=== PATIENT | female | born 1995 | race Caucasian/White ===

== ENCOUNTER → 2017-03-23 | Outpatient (CLI) | payer OTHER | LOC: FIMAGING 09:01 | PROVIDERS: ATTEND Advanced Practice Midwife | DX: Z34.02 Encounter for supervision of normal first pregnancy, second trimester (principal); Z3A.26 26 weeks gestation of pregnancy ==

== ENCOUNTER 2017-06-16 20:25 | Observation (INO) | payer OTHER | END 2017-06-16 22:40 | disposition home or self-care (01) | LOC: FLD 20:25 | PROVIDERS: ADMIT Obstetrics & Gynecology; ATTEND Obstetrics & Gynecology | DX: O99.89 Other specified diseases and conditions complicating pregnancy, childbirth and the puerperium (principal); Z3A.38 38 weeks gestation of pregnancy | CPT/HCPCS: 59025; G0378 ==

== ENCOUNTER 2017-06-29 16:24 | Observation (INO) | payer OTHER | END 2017-06-29 19:21 | disposition home or self-care (01) | LOC: FLD 16:24 | PROVIDERS: ADMIT Obstetrics & Gynecology; ATTEND Obstetrics & Gynecology | DX: Z34.92 Encounter for supervision of normal pregnancy, unspecified, second trimester (principal) | CPT/HCPCS: 59025; G0378 ==

== ENCOUNTER 2017-07-03 12:25 | Inpatient (IN) | payer OTHER ==
[2017-07-03] MEDS ORDERED: OLIVE OIL 118 ML BTL MISC PRN (13:04)
[2017-07-03] MEDS ORDERED: LR 1,000 ML IV PRN (13:04)
[2017-07-03] MEDS ORDERED: TERBUTALINE SULFATE 1 MG/ML VIAL IV PRN (13:04)
[2017-07-03] MEDS ORDERED: OXYTOCIN/RINGERS LACTATE 1,000 ML IV PRN (13:04)
[2017-07-03] MEDS ORDERED: EPSOM SALT 454 GM TP PRN (13:04)
[2017-07-03 14:11] LABS: ABSOLUTE IMMATURE GRANULOCYTES 0.12 10^3/uL (0.00-0.10); ADD DIFF? NO; ADD MORPH? NO; ADD SCAN? NO; ATYPICAL LYMPHOCYTE FLAG 10 (0-99); FRAGMENT RBC FLAG 0 (0-99); HEMATOCRIT 38.9 % (38.0-47.0); HEMOGLOBIN 13.6 g/dL (12.6-16.3); LEFT SHIFT FLG 10 (0-99); LIPEMIA HEMOLYSIS FLAG 90 (0-99); MEAN CELL HEMOGLOBIN 29.1 pg (27.9-34.1); MEAN CELL VOLUME 83.3 fL (81.5-99.8); MEAN PLATELET VOLUME 10.3 fL (8.7-11.7); PLATELET CLUMPS FLAG 0 (0-99); PLATELET COUNT 223 10^3/uL (150-400); RED BLOOD CELL COUNT 4.67 10^6/uL (4.18-5.33); RED CELL DISTRIBUTION WIDTH 13.2 % (11.5-15.2)
--- NOTE | 2017-07-03 14:16 | GHP ---
[f rep st] PREOP HISTORY AND PHYSICAL DATE OF ADMISSION: 07/03/2017 ADMITTING DIAGNOSIS: Intrauterine at 41 weeks' gestation, in early labor. HISTORY OF PRESENT ILLNESS: The patient is a 22-year-old, 1, para 0, with a last menstrual period of 09/18/2016 and an EDC of 06/26/2017, which was confirmed by a 9-week ultrasound. She has had good care at [facility] since registration at 9 weeks' gestation. Her prenat al risk factors include she has had increased BMI, she is vegan, history of pyelonephritis, Rh negat michelle, and that is all. She has had an uncomplicated course. Had normal labs in this pregna ncy, a number of ultrasounds in this , and she progressed to 41 weeks. In the office on , her cervix was checked. She was found to be 2, 80, and -1, and she had her membranes swept. She reports increased contractions since that happened, increasing over the evening. Now they are every 5 minutes and increased in intensity. She has not slept all night. She denies leakage of fl uid. Has had minimal vaginal bleeding and has had good movement. On assessment, heart tones were in the 130s and reactive, moderate variability. Contractions are irregular. Cervix remains 2, 80 and -1. We discussed management, and because the patient is al ready 41 weeks and has been having prodromal labor all night, the patient wishes to be admitted for active labor management, and I am in agreement. Initially, on her 20-week ultrasound, was size less than dates, and estimated weight is 12th percentile. She had a followup growth ultrasound at 32 weeks that showed 15th percentile for growth, and then most recent ultrasound at 36 weeks, baby' s estimated weight was 42nd percentile. CATHIE was normal. She had a posterior placenta, which was reassuring. She did have a post-dates evaluation yesterday, and her CATHIE was 18.5. Baby was cep halic. Her NST was reactive, category 1. The patient has no past obstetrical history; this is her first . PAST GYNECOLOGICAL HISTORY: She had menarche at age 14. She has irregular cycles every 1-4 months, length of 5 days. She has history of dysmenorrhea, but did have a sure last menstrual period of . She has a history of endometriosis and had an endometrioma seen on ultrasound years ago. She has a history of pyelonephritis. She was treated in 2012. PAST SURGICAL HISTORY: Only surgical history is wisdom teeth extraction. She did have an injury of her left elbow, fractured at age 13. ALLERGIES: She is allergic to latex. It gives her a rash. No known drug allergies. MEDICATIONS: Include vitamins and DHA. LABS: She is O negative. Antibody negative. RPR nonreactive. Rubella immune. Hepatitis negative . HIV negative. Cystic fibrosis, SMA, fragile X declined. Patient declined Verifi and A FP. Pap was normal. Gonorrhea and chlamydia normal. One-hour GTT 76. GBS is negative. SOCIAL HISTORY: She is single, but in a committed relationship, living with her partner S he works as a nanny. She denies tobacco, alcohol, and drug use. FAMILY HISTORY: Maternal grandmother had an NC. Maternal grandfather had chronic hypertension. Fa ther has Crohn disease. Maternal grandmother had a stroke. That is all. REVIEW OF SYSTEMS: Negative, except for pertinent positives as above. OBJECTIVE: VITAL SIGNS: She is afebrile. Vital signs are stable. heart tones are 130s, regla ctive, moderate variability, category 1. She is brennan irregularly. PELVIC: Cervix is 2, 80, -1. ASSESSMENT/PLAN: A 22-year-old, 1, para 0, at 41 weeks' gestation, in early prodromal labor . Patient wishes to be admitted for active labor management. Patient will have a lab started and w ill ambulate to try to get the contractions to be closer together. I will check her cervix in a cou ple hours and offer AROM if she has not progressed versus Pitocin augmentation. /[id number]/MODL
[2017-07-03] MEDS ORDERED: LIDOCAINE 1% 300 MG/30 ML SDV ONE (15:41)
[2017-07-03] MEDS ORDERED: TERBUTALINE SULFATE 1 MG/ML VIAL ONE (15:41)
[2017-07-03] MEDS ORDERED: OXYTOCIN 10 UNIT/ML VIAL ONE (15:41)
[2017-07-03] MEDS ORDERED: OLIVE OIL 118 ML BTL ONE (15:41)
[2017-07-03] MEDS ORDERED: AMMONIA AROMATIC 1 EACH AMP IH ONE (15:41)
[2017-07-03] MEDS ORDERED: MISOPROSTOL 200 MCG TAB ONE (15:42)
[2017-07-03] MEDS ORDERED: ONDANSETRON 4 MG/2 ML VIAL IVP ONE (16:00)
--- NOTE | 2017-07-03 17:15 | OBPROG ---
OBG Labor Progress Note Assessment/Plan: Assessment: 22 y/o @ 41 weeks in prodromal labor. Plan: I feel that we should now offer augmentation of labor and I gave her the choice of AROM vs pitocin. She would prefer AROM first and will desire IV Fentanyl prior. status is reassuring. 07/03/17 17:13 Subjective: Pt continues to have strong contractions, she reports them to be building in strength and frequency. Objective: 07/03/17 13:50 Patient ABO/Rh O NEGATIVE 07/03/17 13:50 - SVE Dilation (cm): 2 Effacement (%): 80 Station: -1 Lopez Current Contraction Pattern: Irregular FHR (bpm): 130 FHR Pattern Variability: Moderate FHR Category: 1 Oxytocin Orders Assessment - Pre-Induction/Augmentation Assessment Gestational Age: 41 week(s) and 0 day(s) ICD10 Worksheet Patient Problems: Problems Problem Status Onset Leakage of amniotic fluid Acute
[2017-07-03] MEDS: fentaNYL 100 MCG/2 ML INJ IVP PRN ×2 (17:20→18:34)
[2017-07-03] MEDS ORDERED: BUPIVACAINE 0.25% 30 ML SDV ONE (18:20)
[2017-07-03] MEDS ORDERED: fentaNYL 2MCG/ML/BUP 0.1% RTU 100 ML BAG EP ONE (18:20)
[2017-07-03] MEDS ORDERED: PHENYLEPHRINE HCL 100 MCG/ML SYR ONE (18:20)
--- NOTE | 2017-07-03 19:24 | PREANESOB ---
Obstetric Pre-Anesthesia Info - General Info Proposed Procedure: Labor and delivery. : 1 Para: 0 WBD: 41 - Info Status: Postmature Monitors: External FHR Baseline (bpm): 130 FHR Pattern: Reassuring - Labor Status Cervical Dilation per last OB SVE: 2 Station per last OB SVE: -1 Indications for Labor Analgesia: Pain Control Labor Epidural: Proposed Anesthesia ROS: S/P wisdom teeth removal. Past history of bipolar disorder. Allergies/Adverse Reactions: Allergy/AdvReac Type Severity Reaction Status Date / Time lamotrigine [From Lamictal] Allergy RASH, FEVER Verified 10/29/16 14:50 Latex, Natural Rubber Allergy Rash Verified 06/16/17 20:40 Home Medications: Medication Instructions Recorded Iron 1 tab PO DAILY 06/16/17 1 tab PO DAILY 06/16/17 Visit Medications: Generic Name Dose Route Start Last Admin Trade Name Freq PRN Reason Stop Dose Admin Fentanyl 50 mcg 07/03/17 17:10 07/03/17 18:34 Sublimaze IVP 07/13/17 17:09 50 mcg Q1HR PRN Administration Pain, Severe Unable to Take PO Lactated Ringer's 1,000 mls @ 0 mls/hr 07/03/17 13:04 Lr IV 12/30/17 13:03 PRN PRN SEE PROTOCOL CONDITIONS Protocol Per Protocol Oxytocin/Lactated Ringer's 1,000 mls @ 150 mls/hr 07/03/17 13:04 Pitocin 20 Units/Lr (Premix) IV PRN PRN Post- bleeding Ibuprofen 600 mg 07/03/17 13:04 Motrin PO 12/30/17 13:03 Q6HRS PRN post , inflammation Magnesium Sulfate 454 gm 07/03/17 13:04 Epsom Salt TP 12/30/17 13:03 Q1H PRN perineal discomfort Bracey Oil 118 ml 07/03/17 13:04 Sweet Oil MISC 12/30/17 13:03 ONCE PRN preneal massage Terbutaline Sulfate 0.25 mg 07/03/17 13:04 Brethine IV 12/30/17 13:03 ONCE PRN Tachysystole Discontinued Medications Generic Name Dose Route Start Last Admin Trade Name Freq PRN Reason Stop Dose Admin Ammonia (Aromatic Spirit) Confirm 07/03/17 15:41 Ammonia Aromatic Administered 07/03/17 15:42 Dose 1 each IH .STK-MED ONE Bupivacaine HCl Confirm 07/03/17 18:20 Sensorcaine 0.25% Sdv Administered 07/03/17 18:21 Dose 30 ml .ROUTE .STK-MED ONE Ephedrine Sulfate Confirm 07/03/17 15:41 Ephedrine Sulfate Administered 07/03/17 15:42 Dose 50 mg .ROUTE .STK-MED ONE Fentanyl/Bupivacaine HCl Confirm 07/03/17 18:20 Fentanyl/Bupivacaine/Ns 2 Mcg/Ml 0.1% (Premix Administered 07/03/17 18:21 Dose 100 ml EP .STK-MED ONE Lidocaine HCl Confirm 07/03/17 15:41 Lidocaine Hcl 1% Administered 07/03/17 15:42 Dose 300 mg .ROUTE .STK-MED ONE Misoprostol Confirm 07/03/17 15:42 Cytotec Administered 07/03/17 15:43 Dose 800 mcg .ROUTE .STK-MED ONE Bracey Oil Confirm 07/03/17 15:41 Sweet Oil Administered 07/03/17 15:42 Dose 118 ml .ROUTE .STK-MED ONE Ondansetron HCl 4 mg 07/03/17 16:00 07/03/17 18:02 Zofran IVP 07/03/17 16:01 4 mg ONCE ONE Administration Oxytocin Confirm 07/03/17 15:41 Pitocin Administered 07/03/17 15:42 Dose 40 unit .ROUTE .STK-MED ONE Phenylephrine HCl Confirm 07/03/17 18:20 Neosynephrine Administered 07/03/17 18:21 Dose 1,000 mcg .ROUTE .STK-MED ONE Terbutaline Sulfate Confirm 07/03/17 15:41 Brethine Administered 07/03/17 15:42 Dose 1 mg .ROUTE .STK-MED ONE - Anesthesia History Response to Local Anesthetics: Normal Anesthesia & Operative History: No Prior Problems Family Anesthesia History: Negative - Social History Substance Use/Abuse: Denies - Focused Exam Blood Pressure: 127/75 Heart Rate: 71 Height/Weight (Nursing): Height 160.02 cm Weight 101.151 kg Physical Exam: Within normal limits. Over weight. ASA Status: II Labs: 07/03/17 13:50 Patient ABO/Rh O NEGATIVE 07/03/17 13:50 - Plan Anesthetic Plan: CSE Consent Signed and on Chart: Yes Patient/Guardian Understands and Agrees to Plan: Yes Urgent/Emergent Case: Anes eval completed preop but documented later for safe timely pt care
[2017-07-03] MEDS ORDERED: PHENYLEPHRINE HCL 100 MCG/ML SYR IVP PRN (19:26)
[2017-07-03] MEDS ORDERED: ONDANSETRON 4 MG/2 ML VIAL IVP PRN (19:26)
--- NOTE | 2017-07-03 19:26 | POSTANESTH ---
Post Anesthetic Evaluation Cardiovascular Status: Normal, Stable Respiratory Status: Normal, Stable, Similar to Pre-op Cond. Level of Consciousness/Mental Status: Can Participate in Eval, Alert and Oriented Pain Control: Adequate, Prn Tx Ordered Nausea/Vomiting Control: Adequate, Prn Tx Ordered Complications Possibly Related to Anesthesia: None Noted
[2017-07-03] MEDS ORDERED: fentaNYL 2MCG/ML/BUP 0.1% RTU 100 ML EP SCH (19:30)
[2017-07-03] MEDS ORDERED: LR 500 ML IV SCH (19:30)
[2017-07-03] MEDS ORDERED: LR 500 ML IV PRN (20:35)
--- NOTE | 2017-07-03 20:35 | OBPROG ---
OBG Labor Progress Note Assessment/Plan: Assessment: 22 y/o @ 41 weeks in prodromal labor. Plan: She has some cervical progression with AROM and now is comfortable with her epidural. We placed an IUPC and FSE and will document her contraction adequacy. We will begin pitocin augmentation prn. 07/03/17 17:13 07/03/17 20:32 Subjective: Pt is now comfortable with her epidural. Objective: 07/03/17 13:50 Patient ABO/Rh O NEGATIVE 07/03/17 13:50 Temp Pulse Resp BP Pulse Ox 71 127/75 H 07/03/17 19:25 07/03/17 19:25 - SVE Dilation (cm): 4 Effacement (%): 90 Station: 0 Lopez Current Contraction Pattern: Regular (Q 2-4) FHR (bpm): 130 FHR Pattern Variability: Moderate FHR Category: 1 Membranes: AROM Amniotic Fluid Color: Clear - Procedures Non-surgical Procedures: Amniotomy Oxytocin Orders Assessment - Pre-Induction/Augmentation Assessment Gestational Age: 41 week(s) and 0 day(s) ICD10 Worksheet Patient Problems: Problems Problem Status Onset Leakage of amniotic fluid Acute
[2017-07-03] MEDS ORDERED: OXYTOCIN/RINGERS LACTATE 500 ML IV SCH (21:00)
--- NOTE | 2017-07-03 22:33 | OBPROG ---
OBG Labor Progress Note Assessment/Plan: Assessment: 22 y/o @ 41 weeks in prodromal labor. Plan: Slow cervical progression but making change and contraction pattern has improved with pitocin. Will re check in 2 hours or prn sooner. status is reassuring. 07/03/17 17:13 07/03/17 20:32 07/03/17 22:30 Subjective: Pt remains comfortable with her epidural. Objective: 07/03/17 13:50 Patient ABO/Rh O NEGATIVE 07/03/17 13:50 Temp Pulse Resp BP Pulse Ox 71 127/75 H 07/03/17 19:25 07/03/17 19:25 - SVE Dilation (cm): 6 Effacement (%): 90 Station: 0 Lopez Current Contraction Pattern: Regular (Q 2-4) FHR (bpm): 140 FHR Pattern Variability: Moderate FHR Category: 1 Membranes: AROM Amniotic Fluid Color: Clear - Procedures Non-surgical Procedures: Amniotomy Oxytocin Orders Assessment - Pre-Induction/Augmentation Assessment Gestational Age: 41 week(s) and 0 day(s) ICD10 Worksheet Patient Problems: Problems Problem Status Onset Leakage of amniotic fluid Acute
--- NOTE | 2017-07-04 05:33 | OBPROG ---
OBG Labor Progress Note Assessment/Plan: Assessment: 22 y/o @ 41 weeks in prodromal labor. Plan: Pt is now having good pushing efforts now due to exhaustion. status is reassuring overall, we will allow 1 more hour of rest and optimize contractions with pitocin and then try again. 07/03/17 17:13 07/03/17 20:32 07/03/17 22:30 07/04/17 05:33 Subjective: Pt is pushing. She has been complete since 1 am. She slept for about 1 hour but has been trying to push now for another hour. She denies any pelvic pressure sensation or awareness of the contractions. Objective: 07/03/17 13:50 Patient ABO/Rh O NEGATIVE 07/03/17 13:50 Temp Pulse Resp BP Pulse Ox 71 127/75 H 07/03/17 19:25 07/03/17 19:25 - SVE Dilation (cm): 10 Effacement (%): 100 Station: +2 Dilation Complete Date: 07/04/17 Dilation Complete Time: 01:00 Lopez Current Contraction Pattern: Irregular FHR (bpm): 130 FHR Pattern Variability: Moderate FHR Category: 1 Membranes: AROM Amniotic Fluid Color: Clear - Procedures Non-surgical Procedures: Amniotomy Oxytocin Orders Assessment - Pre-Induction/Augmentation Assessment Gestational Age: 41 week(s) and 0 day(s) ICD10 Worksheet Patient Problems: Problems Problem Status Onset Leakage of amniotic fluid Acute
[2017-07-04] MEDS ORDERED: HYDROCORTISONE 0.5% CREAM TP PRN (08:04)
[2017-07-04] MEDS ORDERED: ACETAMINOPHEN 325 MG TAB PO PRN (08:04)
[2017-07-04] MEDS ORDERED: HYDROCODONE/APAP 5/325 TAB PO PRN (08:04)
[2017-07-04] MEDS ORDERED: SIMETHICONE 80 MG TAB CHEW PO PRN (08:04)
--- NOTE | 2017-07-04 08:08 | OBDEL ---
Info Type: Vaginal GBS+: No Indications for Delivery: Spontaneous Labor Vaginal Delivery - Labor and Delivery Onset of Contractions Date: 07/02/17 Onset of Contractions Time: 15:00 Onset of Contractions Type: Augmented Rupture of Membranes Date: 07/03/17 Rupture of Membranes Time: 17:24 Rupture of Membranes Type: Artificial Amniotic Fluid Color: Meconium Stained Dilation Complete Date: 07/04/17 Dilation Complete Time: 01:00 Placenta Delivery Date: 07/04/17 Placenta Delivery Time: 07:49 Total Hours of Labor: 40 Non-surgical Procedures: Amniotomy Laceration: 1st Degree Repair: 2-0, Vicryl Vaginal Sponge Count Correct: Yes Vaginal Needle Count Correct: Yes Vaginal Sweep Performed: Yes EBL: 200 - Medications Labor Augmentation/Induction Methods Used: Pitocin Labor Augmentation/Induction Indication: Post Dates, Other (Specify) ( inadequate contraction strength and frequency) Assissted Delivery Assisted Delivery Type: Vacuum Station: Outlet Pop offs (Total): 2 Pulls (Total): 3 Assisted Delivery Comment: outlet vacuum performed secondary to maternal exhaustion. I brought the head to [facility], and she delivered spontaneously. Data Lopez Delivery Date: 07/04/17 Delivery Time: 07:46 AILEEN: 06/26/17 Gestational Age: 41 week(s) and 1 day(s) Sex of : Female Score (1 Min): 6 Score (5 Min): 8 ICD10 Worksheet Patient Problems: Problems Problem Status Onset Status post vacuum-assisted vaginal delivery Acute Leakage of amniotic fluid Acute - ICD10 Problem Qualifiers (1) Status post vacuum-assisted vaginal delivery
[2017-07-04] MEDS: IBUPROFEN 600 MG TAB PO PRN ×3 (09:39→23:28)
[2017-07-04 21:20] VITALS: O2SAT 93
[2017-07-04] MEDS: DOCUSATE SODIUM 100 MG CAP PO PRN (23:28)
[2017-07-05] MEDS: IBUPROFEN 600 MG TAB PO PRN ×2 (06:01→13:37)
--- NOTE | 2017-07-05 13:31 | OBPP ---
Progress Note Assessment/Plan: Assessment: 22 y/o PPD #1 s/p vacuum assisted vaginal delivery Plan: D/c home today with Ibuprofen and APNO prn. Follow-up @ [facility] 4 and 6 weeks. 07/03/17 17:13 07/03/17 20:32 07/03/17 22:30 07/04/17 05:33 07/05/17 13:30 Subjective: Pt is doing well today. She has min cramping and perineal pain controlled with Ibuprofen. She is ambulating and voiding and has min lochia, She had a BM this am. Nursing is going well except for sore nipples and she desires to try APNO cream. They would like to go home today. Objective: 07/03/17 13:50 Patient ABO/Rh O NEGATIVE 07/04/17 10:10 Temp Pulse Resp BP Pulse Ox 36.4 C 84 16 108/70 93 07/04/17 21:15 07/04/17 21:15 07/04/17 21:15 07/04/17 21:15 07/04/17 21:15 Uterine Position/Fundal Height: Umbilicus -2 Uterine Tone: Firm Physical Exam - Physical Exam General Appearance: WD/WN, alert, no apparent distress Neck: non-tender, full range of motion, supple Respiratory: chest non-tender, lungs clear, normal breath sounds Cardiac/Chest: regular rate, rhythm Abdomen: normal bowel sounds Extremities: swelling (no), Shawnee's sign (neg)
--- NOTE | 2017-07-05 13:35 | OBGCSDC ---
General Delivery Information - General Info : 1 Para: 1 Abortions: 0 Delivery Physician/CNM: Sima Simental Admission Date: 07/03/17 Labs: Patient ABO/Rh O NEGATIVE 07/04/17 10:10 Hct 38.9 % (38.0-47.0) 07/03/17 13:50 Vaginal - Diagnosis Labor: Augmented Presentation at Delivery: Vertex Rupture of Membranes Type: Artificial Amniotic Fluid Color: Meconium Stained Laceration: 1st Degree Repair: 2-0, Vicryl Delivery Events: None - Operations/Procedures Assisted Delivery Type: Vacuum Non-surgical Procedures: Amniotomy L&D Analgesia/Anesthesia Type: Epidural, Local - Hospital Course Antepartum: vegan, increased BMI, h/o pyelo, Rh neg Intrapartum: admitted /-2, AROM clear became lt meconium over time, Fentanyl, epidural, IUPC/ FSE, pitocin, prolonged second stage, vacuum assist secondary to maternal exhaustion. 3 pulls, 2 pop-offs, : normal course - Delivery Non-surgical Procedures: Amniotomy L&D Analgesia/Anesthesia Type: Epidural, Local Data Lopez Delivery Date: 07/04/17 Delivery Time: 07:26 AILEEN: 06/26/17 Gestational Age: 41 week(s) and 2 day(s) Sex of Infant: Female Weight (gm): 3356 kg Score (1 Min): 6 Score (5 Min): 8 Discharge Information - Discharge Information Discharge Medications: Ibuprofen Condition: Good Instruction/Follow Up: Four Weeks, Six Weeks Discharge Physician/MAEM: Sima Simental
[2017-07-05] MEDS: DOCUSATE SODIUM 100 MG CAP PO PRN (13:37)
[2017-07-06 09:10] VITALS: BP 109/69; PULSE 74; RESP 20; TEMP 97.9
== END 2017-07-05 17:00 | disposition home or self-care (01) | DRG 775 ==
LOC: FLD 12:25 → OBSVTOIN 13:05 → FLD 07-04 14:27
PROVIDERS: ADMIT Obstetrics & Gynecology; ATTEND Obstetrics & Gynecology
DX: O75.81 Maternal exhaustion complicating labor and delivery (principal); O48.0 Post-term pregnancy; Z37.0 Single live birth; Z3A.41 41 weeks gestation of pregnancy; O70.0 First degree perineal laceration during delivery
CPT/HCPCS: J2370; J2405; J2590; J3010; J3105